=== PATIENT | female | born 1930 | race Caucasian/White ===

== ENCOUNTER → 2018-02-13 | Outpatient (CLI) | payer OTHER, MEDICARE ==
[~2018-02-13] MED LIST: ACETAMINOPHEN325 M1 PO; ADVAIR INH; AKWA TEARS EYE15 ML OPHTHALMIC; ALBUTEROL INH INH; ALBUTEROL2.5 MG/0.1 INH; ALLERGY RELIEF10 M3 PO; ATENOLOL 25 MG25 M1 PO; ATENOLOL 50MG T50 M1 PO; AZELAST NASAL137 MC1 NASAL; BYSTOLIC 5 MG5 M1 PO; CALTRATE 600 +1 EACH PO; CENTRUM MULTIV1 EACH PO; CENTRUM SILVER1 EAC4 PO; CO Q-10100 MG PO; COLACE 100 MG100 MG PO; COUMADIN 4 MG TA4 M1 PO; COUMADIN 5 MG TA5 M1 PO; CRESTOR20 MG PO; DILTIAZEM 240 MG PO; DUONEB 2.5-0.5 M3 ML INH; DYMISTA NASAL S23 GM SPRAY; Docusate Sodium PO; ENOXAPARIN60 MG/0.6 SQ; FELODIPINE ER2.5 MG PO; FLUZONE 2045 MCG/010; GLUCOSAMINE1000 MG PO; HYDROCODON-ACE1 EAC7 PO; Hydrocodone-Apap 5-325 Tablet PO; IRON159 MG PO; LEVOXYL75 MCG PO; LISINOPRIL5 MG PO; LORATIDINE 10 M10 M1 PO; LOTENSIN20 MG PO; LUTEIN6 MG PO; MAG-OX 400 TAB400 M1 PO; MAGNESIUM250 M1 PO; MAGNESIUM400 MG PO; MIRALAX255 GM PO; MOBIC15 MG PO; MOM PO; NASONEX17 GM NASAL; NATURAL LUTEIN20 MG PO; OMEGA 3-6-9 CO1 EACH PO; OMEPRAZOLE40 MG PO; PACERONE 200 M200 MG PO; PNEUMOVAX25 MCG/0.5; PRAVACHOL80 MG PO; PREDNISOLO15 MG/5 ML PO; PROTONIX40 M2 PO; Pradaxa PO; QVAR HFA 880 MCG/UN1 INH; STOOL SOFTENER50 MG PO; TAMIFLU30 MG PO; VENTOLIN HFA INH8 GM INH; VESICARE 5 MG TA5 M1 PO; VESICARE 5 MG TA5 MG PO; VITAMIN D31000 UNI2 PO; XARELTO10 MG PO; [UNRECOGNIZED DRUG - OTHER] INH
== END ==
LOC: RAD 13:03
DX: S22.41XA Multiple fractures of ribs, right side, initial encounter for closed fracture (principal); R10.2 Pelvic and perineal pain; X58.XXXA Exposure to other specified factors, initial encounter; Y93.89 Activity, other specified; Y92.89 Other specified places as the place of occurrence of the external cause; Y99.8 Other external cause status; Z96.651 Presence of right artificial knee joint; Z85.118 Personal history of other malignant neoplasm of bronchus and lung